=== PATIENT | female | born 1955 | race Caucasian/White ===

== ENCOUNTER → 2016-11-24 | Outpatient (CLI) | payer OTHER ==
[2016-11-24 12:35] LABS: MEAN CORPUSCULAR HEMOGLOBIN 31.6 pg (27.0-33.0); MEAN CORPUSCULAR HGB CONC 33.4 g/dl (32.0-36.5); MEAN CORPUSCULAR VOLUME 94.6 fl (80.0-96.0); RED CELL DISTRIBUTION WIDTH 12.3 % (11.5-14.5)
[2016-11-24 13:03] LABS: ALBUMIN 3.5 GM/DL (3.2-5.2); ALKALINE PHOSPHATASE 98 U/L (45-117); ALT/SGPT 21 U/L (12-78); ANION GAP 7 MEQ/L (8-16); AST/SGOT 10 U/L (15-37); BILIRUBIN,TOTAL 0.5 MG/DL (0.2-1.0); BLOOD UREA NITROGEN 11 MG/DL (7-18); CALCIUM LEVEL 8.4 MG/DL (8.8-10.2); CARBON DIOXIDE LEVEL 29 MEQ/L (21-32); CHLORIDE LEVEL 107 MEQ/L (98-107); CHOLESTEROL LEVEL 211 MG/DL (<200); CREATININE FOR GFR 0.79 MG/DL (0.55-1.02); FREE T4 1.33 NG/DL (0.76-1.46); GLOMERULAR FILTRATION RATE > 60.0 (>45); GLUCOSE, FASTING 104 MG/DL (80-110); POTASSIUM SERUM 3.9 MEQ/L (3.5-5.1); SODIUM LEVEL 143 MEQ/L (136-145); TOTAL PROTEIN 6.2 GM/DL (6.4-8.2); TRIGLYCERIDES LEVEL 159 MG/DL (<150)
== END ==
LOC: M WUC 10:55
PROVIDERS: ATTEND Internal Medicine Cardiovascular Disease
DX: Z00.00 Encounter for general adult medical examination without abnormal findings (principal)

== ENCOUNTER → 2017-09-14 | Outpatient (CLI) | payer OTHER ==
[2017-09-14 17:39] LABS: HEMATOCRIT 37.8 % (36.0-47.0); HEMOGLOBIN 12.6 g/dl (12.0-16.0); MEAN CORPUSCULAR HEMOGLOBIN 30.8 pg (27.0-33.0); MEAN CORPUSCULAR HGB CONC 33.3 g/dl (32.0-36.5); MEAN CORPUSCULAR VOLUME 92.4 fl (80.0-96.0); PLATELET COUNT, AUTOMATED 333 10^3/uL (150-450); RED BLOOD COUNT 4.09 10^6/uL (4.00-5.40)
[2017-09-14 17:45] LABS: AMORPHOUS SEDIMENT SMALL (NEGATIVE); APPEARANCE, URINE HAZY (CLEAR); BACTERIA, URINE AUTO NEGATIVE (NEGATIVE); BILIRUBIN, URINE AUTO NEGATIVE (NEGATIVE); BLOOD, URINE BLOOD NEGATIVE (NEGATIVE); COLOR, URINE YELLOW (YELLOW); GLUCOSE, URINE (UA) AUTO NEGATIVE (NEGATIVE); KETONE, URINE AUTO NEGATIVE (NEGATIVE); LEUKOCYTE ESTERASE, URINE AUTO NEGATIVE (NEGATIVE); MUCUS, URINE SMALL (NEGATIVE); NITRITE, URINE AUTO NEGATIVE (NEGATIVE); PROTEIN, URINE AUTO NEGATIVE (NEGATIVE); RBC, URINE AUTO 1 /HPF (0-3); SPECIFIC GRAVITY URINE AUTO 1.016 (1.002-1.035); SQUAMOUS EPITHELIAL CELL UR AU 0 /HPF (0-6); UROBILINOGEN, URINE AUTO 0.2 mg/dL (0.0-2.0); WBC, URINE AUTO 3 /HPF (0-3)
[2017-09-14 17:46] LABS: ESTIMATED AVERAGE GLUCOSE 120 MG/DL (60-110); HEMOGLOBIN A1c 5.8 %
[2017-09-14 17:59] LABS: ALBUMIN 3.7 GM/DL (3.2-5.2); ALBUMIN/GLOBULIN RATIO 1.37 (1.00-1.93); ALKALINE PHOSPHATASE 81 U/L (45-117); ALT/SGPT 15 U/L (12-78); ANION GAP 8 MEQ/L (8-16); AST/SGOT 12 U/L (7-37); BILIRUBIN,TOTAL 0.5 MG/DL (0.2-1.0); BLOOD UREA NITROGEN 16 MG/DL (7-18); CALCIUM LEVEL 8.3 MG/DL (8.8-10.2); CARBON DIOXIDE LEVEL 29 MEQ/L (21-32); CHLORIDE LEVEL 106 MEQ/L (98-107); CHOLESTEROL LEVEL 218 MG/DL (<200); CHOLESTEROL RISK RATIO 4.739 (<5); CREATININE FOR GFR 0.82 MG/DL (0.55-1.30); FREE T4 1.32 NG/DL (0.76-1.46); GLOMERULAR FILTRATION RATE > 60.0 (>45); GLUCOSE, FASTING 96 MG/DL (70-100); HDL CHOLESTEROL 46 MG/DL (>40); LDL CHOLESTEROL 131.4 MG/DL (<100); NON-HDL-C 172 MG/DL; SODIUM LEVEL 143 MEQ/L (136-145); THYROID STIMULATING HORMONE 0.687 uIU/ML (0.358-3.740); TOTAL PROTEIN 6.4 GM/DL (6.4-8.2); TRIGLYCERIDES LEVEL 203 MG/DL (<150)
== END ==
LOC: M WUC 09:27
DX: I10 Essential (primary) hypertension (principal); J44.9 Chronic obstructive pulmonary disease, unspecified; E78.5 Hyperlipidemia, unspecified
CPT/HCPCS: 84443

== ENCOUNTER → 2018-03-01 | Outpatient (CLI) | payer MEDICARE, OTHER ==
[2018-03-01 16:50] LABS: BASO # 0.1 10^3/uL (0.0-0.2); BASO % 0.8 % (0.0-1.0); EOS # 0.1 10^3/uL (0.0-0.50); EOS % 1.8 % (0.0-3.0); HEMATOCRIT 38.1 % (36.0-47.0); HEMOGLOBIN 12.8 g/dl (12.0-15.5); IMMATURE GRANULOCYTE % 0.5 % (0-3.0); LYMPH # 2.6 10^3/uL (1.5-4.5); LYMPH % 39.2 % (24.0-44.0); MEAN CORPUSCULAR HEMOGLOBIN 31.1 pg (27.0-33.0); MEAN CORPUSCULAR HGB CONC 33.6 g/dl (32.0-36.5); MEAN CORPUSCULAR VOLUME 92.5 fl (80.0-96.0); MONO # 0.3 10^3/uL (0.0-0.8); MONO % 5.2 % (0.0-5.0); NEUTROPHILS # 3.5 10^3/uL (1.8-7.7); NEUTROPHILS % 52.5 % (36.0-66.0); PLATELET COUNT, AUTOMATED 307 10^3/uL (150-450); RED BLOOD COUNT 4.12 10^6/uL (4.00-5.40); RED CELL DISTRIBUTION WIDTH 12.2 % (11.5-14.5); WHITE BLOOD COUNT 6.6 10^3/uL (4.0-10.0)
[2018-03-01 17:08] LABS: ESTIMATED AVERAGE GLUCOSE 111 MG/DL (60-110); HEMOGLOBIN A1c 5.5 %
[2018-03-01 17:15] LABS: ALBUMIN 3.9 GM/DL (3.2-5.2); ALBUMIN/GLOBULIN RATIO 1.39 (1.00-1.93); ALKALINE PHOSPHATASE 85 U/L (45-117); ALT/SGPT 20 U/L (12-78); ANION GAP 7 MEQ/L (8-16); AST/SGOT 10 U/L (7-37); BILIRUBIN,TOTAL 0.4 MG/DL (0.2-1.0); BLOOD UREA NITROGEN 17 MG/DL (7-18); CARBON DIOXIDE LEVEL 29 MEQ/L (21-32); CHLORIDE LEVEL 109 MEQ/L (98-107); CHOLESTEROL LEVEL 238 MG/DL (<200); CHOLESTEROL RISK RATIO 4.958 (<5); CREATININE FOR GFR 0.85 MG/DL (0.55-1.30); FREE T4 1.22 NG/DL (0.76-1.46); GLOMERULAR FILTRATION RATE > 60.0 (>45); GLUCOSE, FASTING 96 MG/DL (70-100); HDL CHOLESTEROL 48 MG/DL (>40); LDL CHOLESTEROL 144.2 MG/DL (<100); NON-HDL-C 190 MG/DL; POTASSIUM SERUM 4.6 MEQ/L (3.5-5.1); SODIUM LEVEL 145 MEQ/L (136-145); THYROID STIMULATING HORMONE 0.339 uIU/ML (0.358-3.740); TOTAL PROTEIN 6.7 GM/DL (6.4-8.2); TRIGLYCERIDES LEVEL 229 MG/DL (<150)
== END ==
LOC: M WUC 10:07
DX: Z00.00 Encounter for general adult medical examination without abnormal findings (principal); Z79.899 Other long term (current) drug therapy
CPT/HCPCS: 84443

== ENCOUNTER → 2021-01-20 | Outpatient (REF) | payer MEDICARE, OTHER | LOC: M LAB REF 19:58 | PROVIDERS: ATTEND Nurse Practitioner Family | DX: R35.0 Frequency of micturition (principal) ==

== ENCOUNTER → 2021-02-07 | Outpatient (CLI) | payer MEDICARE | LOC: M PLAIMG 13:06 | PROVIDERS: ATTEND Pain Medicine Interventional Pain Medicine | DX: M54.10 Radiculopathy, site unspecified (principal) ==

== ENCOUNTER 2021-10-17 13:34 | Emergency (ER) | payer MEDICARE ==
[~2021-10-17] VITALS: Ht 162.6 cm; Wt 89.9 kg
[2021-10-17] MEDS ORDERED: IRBE300T7 (13:52)
[2021-10-17] MEDS ORDERED: SYMB16INH (13:52)
[2021-10-17] MEDS ORDERED: DICY20TA20 (13:52)
[2021-10-17] MEDS ORDERED: FELO10TA28 (13:52)
[2021-10-17] MEDS ORDERED: CETI-24 (13:52)
[2021-10-17] MEDS ORDERED: OLOP5DRO16 (13:52)
[2021-10-17] MEDS ORDERED: POTA1TAB23 (13:52)
[2021-10-17] MEDS ORDERED: OMEP-173 (13:52)
[2021-10-17] MEDS ORDERED: FURO40TA2 (13:52)
[2021-10-17] MEDS ORDERED: LEVO137T2 (13:52)
[2021-10-17] MEDS ORDERED: MONT10TA97 (13:52)
[2021-10-17 17:31] LABS: BASO # 0.1 10^3/uL (0.0-0.2); BASO % 0.6 % (0.0-1.0); EOS # 0.1 10^3/uL (0.0-0.5); EOS % 0.8 % (0.0-3.0); HEMATOCRIT 40.5 % (36.0-47.0); HEMOGLOBIN 13.4 g/dl (12.0-15.5); LYMPH # 2.6 10^3/uL (1.5-5.0); LYMPH % 25.4 % (24.0-44.0); MEAN CORPUSCULAR HEMOGLOBIN 30.2 pg (27.0-33.0); MEAN CORPUSCULAR HGB CONC 33.1 g/dl (32.0-36.5); MEAN CORPUSCULAR VOLUME 91.2 fl (80.0-96.0); MONO # 0.7 10^3/uL (0.0-0.8); MONO % 6.3 % (2.0-8.0); NEUTROPHILS # 6.9 10^3/uL (1.5-8.5); NEUTROPHILS % 66.6 % (36.0-66.0); PLATELET COUNT, AUTOMATED 437 10^3/uL (150-450); RED BLOOD COUNT 4.44 10^6/uL (4.00-5.40); WHITE BLOOD COUNT 10.4 10^3/uL (4.0-10.0)
[2021-10-17] MEDS: METOPROLOL 5 MG/5 ML VIAL IV SCH ×3 (18:10→18:45)
[2021-10-17 18:11] LABS: BLOOD UREA NITROGEN 19 MG/DL (7-18); CALCIUM LEVEL 9.5 MG/DL (8.8-10.2); CARBON DIOXIDE LEVEL 26 MEQ/L (21-32); CHLORIDE LEVEL 112 MEQ/L (98-107); CREATININE FOR GFR 0.82 MG/DL (0.55-1.30); FREE T4 1.32 NG/DL (0.76-1.46); GLOMERULAR FILTRATION RATE > 60.0 (>45); GLUCOSE, FASTING 101 MG/DL (70-100); MAGNESIUM LEVEL 2.3 MG/DL (1.8-2.4); SODIUM LEVEL 144 MEQ/L (136-145)
[2021-10-17 18:59] LABS: CK-MB VALUE MASS 3.1 NG/ML (<3.6); MB/CK RELATIVE INDEX 6.6 (< OR =4)
[2021-10-17] MEDS ORDERED: HEPARIN SOD (PORCINE) 5000UNITS/ML 1ML VIAL/SYRINGE IV ONE (19:15)
[2021-10-17] MEDS ORDERED: HEPARIN DRIP 25,000 UNITS in IV 1 EA IV SCH (19:15)
[2021-10-17 19:25] VITALS: BP 132/79
[2021-10-17] MEDS ORDERED: METOPROLOL TART 25 MG TABLET PO ONE (19:25)
[2021-10-17 19:44] LABS: INR 0.99; PROTHROMBIN TIME 13.5 SECONDS (12.7-14.5)
[2021-10-17 19:45] LABS: PARTIAL THROMBOPLASTIN TIME 27.3 SECONDS (25.9-37.0)
[2021-10-17 19:49] LABS: MB/CK RELATIVE INDEX 4.26 (< OR =4)
[2021-10-17 20:15] LABS: RSV AMPLIFICATION NEGATIVE (NEGATIVE)
[2021-10-17 20:23] VITALS: BP 141/69
== END 2021-10-17 20:23 ==
LOC: M ED 13:34
DX: I21.4 Non-ST elevation (NSTEMI) myocardial infarction (principal); I48.91 Unspecified atrial fibrillation; J44.9 Chronic obstructive pulmonary disease, unspecified; M54.50 Low back pain, unspecified; F17.200 Nicotine dependence, unspecified, uncomplicated; Z88.8 Allergy status to other drugs, medicaments and biological substances
CPT/HCPCS: 71046; 80048; 82550; 82553; 83735; 84439; 84443; 84484; 85025; 85610; 85730; 87631; 93005; 93041; 94760; 96374; 96375; 96376; 99285; J1644

== ENCOUNTER → 2022-07-23 | Outpatient (CLI) | payer MEDICARE ==
[~2022-07-23] MED LIST: CETI-24; DICY20TA20; FELO10TA28; FURO40TA2; IRBE300T7; LEVO137T2; MONT10TA97; OLOP5DRO16; OMEP-173; POTA1TAB23; SYMB16INH
[2022-07-23 16:48] LABS: MEAN CORPUSCULAR HEMOGLOBIN 29.7 pg (27.0-33.0); MEAN CORPUSCULAR HGB CONC 31.4 g/dl (32.0-36.5); MEAN CORPUSCULAR VOLUME 94.6 fl (80.0-96.0); PLATELET COUNT, AUTOMATED 333 10^3/uL (150-450); WHITE BLOOD COUNT 8.4 10^3/uL (4.0-10.0)
[2022-07-23 17:24] LABS: ALBUMIN 3.8 G/DL (3.2-5.2); ALKALINE PHOSPHATASE 89 U/L (46-116); ALT/SGPT 14 U/L (7.0-40); AST/SGOT 10 U/L (<34); BILIRUBIN,TOTAL 0.3 MG/DL (0.3-1.2); BLOOD UREA NITROGEN 22 MG/DL (9-23); CALCIUM LEVEL 8.7 MG/DL (8.3-10.6); CARBON DIOXIDE LEVEL 27 MMOL/L (20-31); CHLORIDE LEVEL 107 MMOL/L (98-107); CHOLESTEROL LEVEL 136 MG/DL (<200); CHOLESTEROL RISK RATIO 2.64 (<5); CREATININE FOR GFR 0.84 MG/DL (0.55-1.30); GLOMERULAR FILTRATION RATE > 60.0 (>45); GLUCOSE, FASTING 98 MG/DL (74-106); HDL CHOLESTEROL 51.5 MG/DL (>40); LDL CHOLESTEROL 43.7 MG/DL (<100); NON-HDL-C 85 MG/DL; SODIUM LEVEL 144 MMOL/L (136-145); THYROID STIMULATING HORMONE 1.964 uIU/ML (0.55-4.78); TRIGLYCERIDES LEVEL 204 MG/DL (<150)
== END ==
LOC: M WUC 14:01
PROVIDERS: ATTEND Internal Medicine
DX: E78.5 Hyperlipidemia, unspecified (principal); R06.00 Dyspnea, unspecified; N03.9 Chronic nephritic syndrome with unspecified morphologic changes

== ENCOUNTER → 2022-10-10 | Outpatient (CLI) | payer MEDICARE ==
[~2022-10-10] MED LIST changes: -OLOP5DRO16; +OLOP5DRO17
[2022-10-10 17:17] LABS: HEMOGLOBIN 11.4 g/dl (12.0-15.5); MEAN CORPUSCULAR HEMOGLOBIN 29.8 pg (27.0-33.0); MEAN CORPUSCULAR HGB CONC 31.7 g/dl (32.0-36.5); MEAN CORPUSCULAR VOLUME 94.2 fl (80.0-96.0); PLATELET COUNT, AUTOMATED 285 10^3/uL (150-450); RED BLOOD COUNT 3.82 10^6/uL (4.00-5.40); WHITE BLOOD COUNT 11.9 10^3/uL (4.0-10.0)
[2022-10-10 17:19] LABS: APPEARANCE, URINE CLOUDY (CLEAR); BACTERIA, URINE AUTO 1+ (NEGATIVE); BILIRUBIN, URINE AUTO 2+ (NEGATIVE); BLOOD, URINE BLOOD NEGATIVE (NEGATIVE); COLOR, URINE AMBER (YELLOW); GLUCOSE, URINE (UA) AUTO NEGATIVE (NEGATIVE); KETONE, URINE AUTO TRACE mg/dL (NEGATIVE); LEUKOCYTE ESTERASE, URINE AUTO 3+ (NEGATIVE); MUCUS, URINE LARGE (NEGATIVE); NITRITE, URINE AUTO NEGATIVE (NEGATIVE); PROTEIN, URINE AUTO 3+ mg/dL (NEGATIVE); RBC, URINE AUTO 3 /HPF (0-3); SPECIFIC GRAVITY URINE AUTO 1.033 (1.002-1.035); SQUAMOUS EPITHELIAL CELL UR AU 11 /HPF (0-6); WBC, URINE AUTO 57 /HPF (0-3)
[2022-10-10 17:32] LABS: ALBUMIN 3.3 G/DL (3.2-5.2); ALKALINE PHOSPHATASE 74 U/L (46-116); ALT/SGPT < 9 U/L (7.0-40); AST/SGOT 10 U/L (<34); BILIRUBIN,TOTAL 0.4 MG/DL (0.3-1.2); BLOOD UREA NITROGEN 15 MG/DL (9-23); CALCIUM LEVEL 8.6 MG/DL (8.3-10.6); CARBON DIOXIDE LEVEL 29 MMOL/L (20-31); CHLORIDE LEVEL 107 MMOL/L (98-107); CREATININE FOR GFR 0.95 MG/DL (0.55-1.30); GLOMERULAR FILTRATION RATE > 60.0 (>45); GLUCOSE, FASTING 88 MG/DL (74-106); POTASSIUM SERUM 3.6 MMOL/L (3.5-5.1); SODIUM LEVEL 145 MMOL/L (136-145)
== END ==
LOC: M WUC 14:55
PROVIDERS: ATTEND Internal Medicine
DX: A09 Infectious gastroenteritis and colitis, unspecified (principal)

== ENCOUNTER 2022-10-29 10:06 | Inpatient (IN) | payer MEDICARE ==
[~2022-10-29] VITALS: Ht 162.6 cm; Wt 93.0 kg
[~2022-10-29 10:06] MED LIST changes: -CETI-24; +CETI-24 PO; -FURO40TA2; +FURO40TA2 PO; -IRBE300T7; +IRBE300T7 PO; -LEVO137T2; +LEVO137T2 PO; -MONT10TA97; +MONT10TA97 PO; -POTA1TAB23; +POTA1TAB23 PO
[2022-10-29 11:30] VITALS: BP 137/68
[2022-10-29 14:00] VITALS: BP 107/64
[2022-10-29] MEDS ORDERED: ACETAMINOPHEN TAB 650MG DOSE (2X325MG) PO PRN (16:05)
[2022-10-29] MEDS ORDERED: BISACODYL 10MG SUPP PR PRN (16:05)
[2022-10-29] MEDS ORDERED: MIRALAX *UNIT DOSE* 17GM PACKET PO PRN (16:05)
[2022-10-29 20:00] VITALS: BP 152/62
[2022-10-29] MEDS ORDERED: PANT40TA29 PO (20:20)
[2022-10-29] MEDS ORDERED: ALBU8.5H INH (20:20)
[2022-10-29] MEDS ORDERED: CLOP75TA2 PO (20:20)
[2022-10-29] MEDS ORDERED: BUDE10.7 IH (20:20)
[2022-10-29] MEDS ORDERED: METO1TAB32 PO (20:20)
[2022-10-29] MEDS ORDERED: AMIO200T49 PO (20:20)
[2022-10-29] MEDS ORDERED: ATOR80TA59 PO (20:26)
[2022-10-29] MEDS ORDERED: HOME MED LIST COMPLETE! XX SCH (20:30)
[2022-10-29] MEDS ORDERED: TORS10TA3 PO (20:34)
[2022-10-29] MEDS ORDERED: SPIR12.9 INH (20:34)
[2022-10-29] MEDS ORDERED: METO200T28 PO (20:34)
[2022-10-29] MEDS ORDERED: ELIQ5TAB PO (20:34)
[2022-10-29] MEDS ORDERED: TIOT18INH INH (20:34)
[2022-10-29] MEDS: COMBIVENT RESPIMAT 100-20MCG INHALER 4GM INH SCH (20:51)
[2022-10-29] MEDS: SYMBICORT 160/4.5MCG INHALER 6GM INH SCH (20:52)
[2022-10-29] MEDS: POTASSIUM CHLORIDE 10MEQ SR TABLET PO SCH (21:12)
[2022-10-29] MEDS: MONTELUKAST 10 MG TAB PO SCH (21:12)
[2022-10-29] MEDS: SENNA 8.6 MG TAB (SENOKOT) PO SCH (21:12)
[2022-10-29] MEDS: DOCUSATE SODIUM 100MG CAPSULE PO SCH (21:12)
[2022-10-29] MEDS: APIXABAN 5 MG TAB (ELIQUIS) PO SCH (21:12)
[2022-10-30] MEDS: LEVOTHYROXINE 137MCG TABLET (0.137MG) PO SCH (05:27)
[2022-10-30 06:00] VITALS: BP 112/68
[2022-10-30 06:26] LABS: BASO # 0.1 10^3/uL (0.0-0.2); BASO % 1.1 % (0.0-1.0); EOS # 0.2 10^3/uL (0.0-0.5); EOS % 2.8 % (0.0-3.0); HEMATOCRIT 29.3 % (36.0-47.0); LYMPH # 1.8 10^3/uL (1.5-5.0); LYMPH % 22.3 % (24.0-44.0); MEAN CORPUSCULAR HEMOGLOBIN 29.1 pg (27.0-33.0); MEAN CORPUSCULAR HGB CONC 30.7 g/dl (32.0-36.5); MEAN CORPUSCULAR VOLUME 94.8 fl (80.0-96.0); NEUTROPHILS % 60.9 % (36.0-66.0); PLATELET COUNT, AUTOMATED 481 10^3/uL (150-450); RED BLOOD COUNT 3.09 10^6/uL (4.00-5.40); WHITE BLOOD COUNT 8.2 10^3/uL (4.0-10.0)
[2022-10-30 07:01] LABS: ALKALINE PHOSPHATASE 74 U/L (46-116); ALT/SGPT 10 U/L (7.0-40); AST/SGOT 12 U/L (<34); BILIRUBIN,TOTAL 0.5 MG/DL (0.3-1.2); BLOOD UREA NITROGEN 20 MG/DL (9-23); CALCIUM LEVEL 8.8 MG/DL (8.3-10.6); CARBON DIOXIDE LEVEL 28 MMOL/L (20-31); CHLORIDE LEVEL 107 MMOL/L (98-107); CREATININE FOR GFR 0.86 MG/DL (0.55-1.30); GLOMERULAR FILTRATION RATE > 60.0 (>45); GLUCOSE, FASTING 102 MG/DL (74-106); POTASSIUM SERUM 4.3 MMOL/L (3.5-5.1); SODIUM LEVEL 142 MMOL/L (136-145); TOTAL PROTEIN 5.3 G/DL (5.7-8.2)
[2022-10-30] MEDS: SYMBICORT 160/4.5MCG INHALER 6GM INH SCH ×2 (07:13→20:00)
[2022-10-30] MEDS: TIOTROPIUM INHALER/CAPSULE (SPIRIVA) INH SCH (07:13)
[2022-10-30] MEDS: COMBIVENT RESPIMAT 100-20MCG INHALER 4GM INH SCH ×4 (07:14→20:00)
[2022-10-30 08:05] VITALS: BP 108/76
[2022-10-30] MEDS: PANTOPRAZOLE 40MG TAB (PROTONIX) PO SCH (08:08)
[2022-10-30] MEDS: POTASSIUM CHLORIDE 10MEQ SR TABLET PO SCH (08:08)
[2022-10-30] MEDS: DOCUSATE SODIUM 100MG CAPSULE PO SCH ×2 (08:08→19:40)
[2022-10-30] MEDS: ATORVASTATIN 20 MG TAB PO SCH (08:08)
[2022-10-30] MEDS: APIXABAN 5 MG TAB (ELIQUIS) PO SCH ×2 (08:08→19:40)
[2022-10-30] MEDS: METOPROLOL SUCC (TopROL XL) 100MG *XL* TAB PO SCH ×2 (08:09→11:07)
[2022-10-30] MEDS: TORSEMIDE 10 MG TABLET PO SCH (08:09)
[2022-10-30 11:01] VITALS: BP 126/91
[2022-10-30 12:30] LABS: IRON (FE) 31 UG/DL (50-170); MAGNESIUM LEVEL 1.9 MG/DL (1.8-2.4)
[2022-10-30 12:31] LABS: PERCENT SATURATION 11.4 % (13.2-45.0); TOTAL IRON BINDING CAPACITY 272 UG/DL (250-425)
[2022-10-30 12:32] LABS: FERRITIN 58.6 NG/ML (7.3-270.7)
[2022-10-30 12:33] LABS: VITAMIN B12 LEVEL 279 PG/ML (211-911)
[2022-10-30 14:00] VITALS: BP 131/56
[2022-10-30] MEDS: SENNA 8.6 MG TAB (SENOKOT) PO SCH (19:40)
[2022-10-30] MEDS: MONTELUKAST 10 MG TAB PO SCH (19:40)
[2022-10-30 20:00] VITALS: BP 117/55
[2022-10-31] MEDS: LEVOTHYROXINE 137MCG TABLET (0.137MG) PO SCH (05:19)
[2022-10-31 06:00] VITALS: BP 114/83
[2022-10-31] MEDS: APIXABAN 5 MG TAB (ELIQUIS) PO SCH ×2 (07:23→20:14)
[2022-10-31] MEDS: TORSEMIDE 10 MG TABLET PO SCH (07:23)
[2022-10-31] MEDS: PANTOPRAZOLE 40MG TAB (PROTONIX) PO SCH (07:23)
[2022-10-31] MEDS: METOPROLOL SUCC (TopROL XL) 100MG *XL* TAB PO SCH (07:24)
[2022-10-31] MEDS: POTASSIUM CHLORIDE 10MEQ SR TABLET PO SCH (07:24)
[2022-10-31] MEDS: ATORVASTATIN 20 MG TAB PO SCH (07:24)
[2022-10-31] MEDS: DOCUSATE SODIUM 100MG CAPSULE PO SCH ×2 (07:24→20:16)
[2022-10-31] MEDS: TIOTROPIUM INHALER/CAPSULE (SPIRIVA) INH SCH (07:40)
[2022-10-31] MEDS: SYMBICORT 160/4.5MCG INHALER 6GM INH SCH ×2 (07:40→20:12)
[2022-10-31] MEDS: COMBIVENT RESPIMAT 100-20MCG INHALER 4GM INH SCH (07:41)
[2022-10-31 11:00] LABS: BASO # 0.1 10^3/uL (0.0-0.2); EOS # 0.2 10^3/uL (0.0-0.5); EOS % 2.4 % (0.0-3.0); HEMATOCRIT 30.6 % (36.0-47.0); HEMOGLOBIN 9.8 g/dl (12.0-15.5); LYMPH # 1.3 10^3/uL (1.5-5.0); LYMPH % 16.6 % (24.0-44.0); MEAN CORPUSCULAR HEMOGLOBIN 30.2 pg (27.0-33.0); MEAN CORPUSCULAR VOLUME 94.4 fl (80.0-96.0); MONO # 0.7 10^3/uL (0.0-0.8); NEUTROPHILS # 5.5 10^3/uL (1.5-8.5); PLATELET COUNT, AUTOMATED 513 10^3/uL (150-450); RED BLOOD COUNT 3.24 10^6/uL (4.00-5.40); WHITE BLOOD COUNT 7.9 10^3/uL (4.0-10.0)
[2022-10-31 11:35] LABS: BLOOD UREA NITROGEN 17 MG/DL (9-23); CALCIUM LEVEL 8.5 MG/DL (8.3-10.6); CARBON DIOXIDE LEVEL 27 MMOL/L (20-31); CHLORIDE LEVEL 111 MMOL/L (98-107); CREATININE FOR GFR 0.85 MG/DL (0.55-1.30); DIGOXIN LEVEL 0.4 NG/ML (0.8-2.0); GLOMERULAR FILTRATION RATE > 60.0 (>45); GLUCOSE, FASTING 129 MG/DL (74-106); POTASSIUM SERUM 4.1 MMOL/L (3.5-5.1); SODIUM LEVEL 143 MMOL/L (136-145)
[2022-10-31 14:00] VITALS: BP 130/63
[2022-10-31] MEDS: DIGOXIN 0.125 MG TAB PO SCH (14:30)
[2022-10-31] MEDS: NICOTINE 7 MG/24 HR TRANSDERMAL TD SCH (14:31)
[2022-10-31 20:00] VITALS: BP 97/54
[2022-10-31] MEDS: MONTELUKAST 10 MG TAB PO SCH (20:14)
[2022-10-31] MEDS: SENNA 8.6 MG TAB (SENOKOT) PO SCH (20:16)
[2022-11-01] MEDS: LEVOTHYROXINE 137MCG TABLET (0.137MG) PO SCH (05:30)
[2022-11-01 06:11] VITALS: BP 139/94
[2022-11-01] MEDS: SYMBICORT 160/4.5MCG INHALER 6GM INH SCH ×2 (07:08→20:13)
[2022-11-01] MEDS: TIOTROPIUM INHALER/CAPSULE (SPIRIVA) INH SCH (07:08)
[2022-11-01] MEDS: DOCUSATE SODIUM 100MG CAPSULE PO SCH ×2 (08:08→19:18)
[2022-11-01] MEDS: POTASSIUM CHLORIDE 10MEQ SR TABLET PO SCH (08:11)
[2022-11-01] MEDS: APIXABAN 5 MG TAB (ELIQUIS) PO SCH ×2 (08:11→19:30)
[2022-11-01] MEDS: ATORVASTATIN 20 MG TAB PO SCH (08:11)
[2022-11-01] MEDS: METOPROLOL SUCC (TopROL XL) 100MG *XL* TAB PO SCH (08:12)
[2022-11-01] MEDS: DIGOXIN 0.125 MG TAB PO SCH (08:12)
[2022-11-01] MEDS: PANTOPRAZOLE 40MG TAB (PROTONIX) PO SCH (08:12)
[2022-11-01] MEDS: TORSEMIDE 10 MG TABLET PO SCH (08:13)
[2022-11-01] MEDS: NICOTINE 7 MG/24 HR TRANSDERMAL TD SCH (08:13)
[2022-11-01 14:00] VITALS: BP 109/52
[2022-11-01] MEDS: CETIRIZINE (ZyrTEC) 10 MG TAB PO SCH (17:00)
[2022-11-01] MEDS: FLUTICASONE PROP 0.05% NASAL SPRAY 16 GM (FLONASE) NARES SCH (17:00)
[2022-11-01] MEDS: SENNA 8.6 MG TAB (SENOKOT) PO SCH (19:18)
[2022-11-01] MEDS: MONTELUKAST 10 MG TAB PO SCH (19:31)
[2022-11-01 20:00] VITALS: BP 106/68
[2022-11-02] MEDS: LEVOTHYROXINE 137MCG TABLET (0.137MG) PO SCH (05:22)
[2022-11-02 06:00] VITALS: BP 127/78
[2022-11-02 06:55] LABS: BASO # 0.1 10^3/uL (0.0-0.2); EOS # 0.2 10^3/uL (0.0-0.5); EOS % 2.9 % (0.0-3.0); LYMPH # 2.1 10^3/uL (1.5-5.0); LYMPH % 26.9 % (24.0-44.0); MEAN CORPUSCULAR HEMOGLOBIN 29.6 pg (27.0-33.0); MEAN CORPUSCULAR VOLUME 95.4 fl (80.0-96.0); MONO # 0.8 10^3/uL (0.0-0.8); MONO % 9.8 % (2.0-8.0); NEUTROPHILS # 4.5 10^3/uL (1.5-8.5); NEUTROPHILS % 58.7 % (36.0-66.0); PLATELET COUNT, AUTOMATED 403 10^3/uL (150-450); RED BLOOD COUNT 3.04 10^6/uL (4.00-5.40); WHITE BLOOD COUNT 7.7 10^3/uL (4.0-10.0)
[2022-11-02] MEDS: TIOTROPIUM INHALER/CAPSULE (SPIRIVA) INH SCH (07:15)
[2022-11-02] MEDS: SYMBICORT 160/4.5MCG INHALER 6GM INH SCH ×2 (07:15→20:02)
[2022-11-02 07:33] LABS: BLOOD UREA NITROGEN 20 MG/DL (9-23); CALCIUM LEVEL 8.1 MG/DL (8.3-10.6); CARBON DIOXIDE LEVEL 29 MMOL/L (20-31); CHLORIDE LEVEL 110 MMOL/L (98-107); CREATININE FOR GFR 0.89 MG/DL (0.55-1.30); GLOMERULAR FILTRATION RATE > 60.0 (>45); GLUCOSE, FASTING 108 MG/DL (74-106); POTASSIUM SERUM 3.8 MMOL/L (3.5-5.1); SODIUM LEVEL 143 MMOL/L (136-145)
[2022-11-02] MEDS: FLUTICASONE PROP 0.05% NASAL SPRAY 16 GM (FLONASE) NARES SCH ×2 (09:00→19:54)
[2022-11-02] MEDS: PANTOPRAZOLE 40MG TAB (PROTONIX) PO SCH (09:36)
[2022-11-02] MEDS: ATORVASTATIN 20 MG TAB PO SCH (09:36)
[2022-11-02] MEDS: DOCUSATE SODIUM 100MG CAPSULE PO SCH ×2 (09:36→19:53)
[2022-11-02] MEDS: CETIRIZINE (ZyrTEC) 10 MG TAB PO SCH (09:36)
[2022-11-02] MEDS: APIXABAN 5 MG TAB (ELIQUIS) PO SCH ×2 (09:36→19:54)
[2022-11-02] MEDS: TORSEMIDE 10 MG TABLET PO SCH (09:36)
[2022-11-02] MEDS: DIGOXIN 0.125 MG TAB PO SCH (09:37)
[2022-11-02] MEDS: METOPROLOL SUCC (TopROL XL) 100MG *XL* TAB PO SCH (09:37)
[2022-11-02] MEDS: POTASSIUM CHLORIDE 10MEQ SR TABLET PO SCH (09:37)
[2022-11-02] MEDS: NICOTINE 7 MG/24 HR TRANSDERMAL TD SCH (09:38)
[2022-11-02 14:00] VITALS: BP 130/65
[2022-11-02 19:38] VITALS: BP 138/90
[2022-11-02] MEDS: SENNA 8.6 MG TAB (SENOKOT) PO SCH (19:53)
[2022-11-02] MEDS: MONTELUKAST 10 MG TAB PO SCH (19:54)
[2022-11-03 05:54] VITALS: BP 118/65
[2022-11-03] MEDS: LEVOTHYROXINE 137MCG TABLET (0.137MG) PO SCH (05:57)
[2022-11-03] MEDS: TIOTROPIUM INHALER/CAPSULE (SPIRIVA) INH SCH (07:17)
[2022-11-03] MEDS: SYMBICORT 160/4.5MCG INHALER 6GM INH SCH ×2 (07:17→20:03)
[2022-11-03] MEDS: DOCUSATE SODIUM 100MG CAPSULE PO SCH ×2 (09:00→21:00)
[2022-11-03] MEDS: NICOTINE 7 MG/24 HR TRANSDERMAL TD SCH (09:02)
[2022-11-03] MEDS: TORSEMIDE 10 MG TABLET PO SCH (09:02)
[2022-11-03] MEDS: CETIRIZINE (ZyrTEC) 10 MG TAB PO SCH (09:02)
[2022-11-03] MEDS: POTASSIUM CHLORIDE 10MEQ SR TABLET PO SCH (09:03)
[2022-11-03] MEDS: METOPROLOL SUCC (TopROL XL) 100MG *XL* TAB PO SCH (09:03)
[2022-11-03] MEDS: PANTOPRAZOLE 40MG TAB (PROTONIX) PO SCH (09:03)
[2022-11-03] MEDS: APIXABAN 5 MG TAB (ELIQUIS) PO SCH ×2 (09:03→20:43)
[2022-11-03] MEDS: DIGOXIN 0.125 MG TAB PO SCH (09:04)
[2022-11-03] MEDS: ATORVASTATIN 20 MG TAB PO SCH (09:04)
[2022-11-03] MEDS: FLUTICASONE PROP 0.05% NASAL SPRAY 16 GM (FLONASE) NARES SCH ×2 (09:06→21:00)
[2022-11-03 14:00] VITALS: BP 122/72
[2022-11-03 20:00] VITALS: BP 119/80
[2022-11-03] MEDS: MONTELUKAST 10 MG TAB PO SCH (20:43)
[2022-11-03] MEDS: SENNA 8.6 MG TAB (SENOKOT) PO SCH (21:00)
[2022-11-04] MEDS: LEVOTHYROXINE 137MCG TABLET (0.137MG) PO SCH (05:56)
[2022-11-04 06:00] VITALS: BP 150/85
[2022-11-04] MEDS: TIOTROPIUM INHALER/CAPSULE (SPIRIVA) INH SCH (07:12)
[2022-11-04] MEDS: SYMBICORT 160/4.5MCG INHALER 6GM INH SCH ×2 (07:13→19:54)
[2022-11-04] MEDS: NICOTINE 7 MG/24 HR TRANSDERMAL TD SCH (08:30)
[2022-11-04] MEDS: FLUTICASONE PROP 0.05% NASAL SPRAY 16 GM (FLONASE) NARES SCH ×2 (08:30→19:58)
[2022-11-04] MEDS: APIXABAN 5 MG TAB (ELIQUIS) PO SCH ×2 (08:31→19:58)
[2022-11-04] MEDS: POTASSIUM CHLORIDE 10MEQ SR TABLET PO SCH (08:31)
[2022-11-04] MEDS: PANTOPRAZOLE 40MG TAB (PROTONIX) PO SCH (08:31)
[2022-11-04] MEDS: CETIRIZINE (ZyrTEC) 10 MG TAB PO SCH (08:31)
[2022-11-04] MEDS: DIGOXIN 0.125 MG TAB PO SCH (08:31)
[2022-11-04] MEDS: TORSEMIDE 10 MG TABLET PO SCH (08:31)
[2022-11-04] MEDS: ATORVASTATIN 20 MG TAB PO SCH (08:31)
[2022-11-04] MEDS: METOPROLOL SUCC (TopROL XL) 100MG *XL* TAB PO SCH (08:32)
[2022-11-04] MEDS: DOCUSATE SODIUM 100MG CAPSULE PO SCH ×2 (08:32→19:28)
[2022-11-04 14:00] VITALS: BP 130/78
[2022-11-04] MEDS: SENNA 8.6 MG TAB (SENOKOT) PO SCH (19:29)
[2022-11-04] MEDS: MONTELUKAST 10 MG TAB PO SCH (19:58)
[2022-11-04 20:00] VITALS: BP 127/87
[2022-11-05] MEDS: LEVOTHYROXINE 137MCG TABLET (0.137MG) PO SCH (05:52)
[2022-11-05 06:00] VITALS: BP 150/73
[2022-11-05] MEDS: TIOTROPIUM INHALER/CAPSULE (SPIRIVA) INH SCH (06:57)
[2022-11-05] MEDS: SYMBICORT 160/4.5MCG INHALER 6GM INH SCH (06:57)
[2022-11-05] MEDS: DOCUSATE SODIUM 100MG CAPSULE PO SCH (08:18)
[2022-11-05] MEDS: ATORVASTATIN 20 MG TAB PO SCH (08:22)
[2022-11-05] MEDS: TORSEMIDE 10 MG TABLET PO SCH (08:22)
[2022-11-05 08:23] VITALS: BP 150/73
[2022-11-05] MEDS: METOPROLOL SUCC (TopROL XL) 100MG *XL* TAB PO SCH (08:23)
[2022-11-05] MEDS: APIXABAN 5 MG TAB (ELIQUIS) PO SCH (08:23)
[2022-11-05] MEDS: NICOTINE 7 MG/24 HR TRANSDERMAL TD SCH (08:23)
[2022-11-05] MEDS: DIGOXIN 0.125 MG TAB PO SCH (08:23)
[2022-11-05] MEDS: CETIRIZINE (ZyrTEC) 10 MG TAB PO SCH (08:23)
[2022-11-05] MEDS: PANTOPRAZOLE 40MG TAB (PROTONIX) PO SCH (08:23)
[2022-11-05] MEDS: POTASSIUM CHLORIDE 10MEQ SR TABLET PO SCH (08:23)
[2022-11-05] MEDS: FLUTICASONE PROP 0.05% NASAL SPRAY 16 GM (FLONASE) NARES SCH (08:24)
[2022-11-05] MEDS ORDERED: ATOR80TA59 PO (10:07)
[2022-11-05] MEDS ORDERED: PANT40TA29 PO (10:07)
[2022-11-05] MEDS ORDERED: CETI-24 PO (10:07)
[2022-11-05] MEDS ORDERED: MONT10TA97 PO (10:07)
[2022-11-05] MEDS ORDERED: TIOT18INH INH (10:07)
[2022-11-05] MEDS ORDERED: TORS10TA3 PO (10:07)
[2022-11-05] MEDS ORDERED: ELIQ5TAB PO (10:07)
[2022-11-05] MEDS ORDERED: METO200T28 PO (10:07)
[2022-11-05] MEDS ORDERED: DIGO0.123 PO (10:07)
[2022-11-05] MEDS ORDERED: BUDE10.7 IH (10:07)
[2022-11-05] MEDS ORDERED: POTA1TAB23 PO (10:07)
[2022-11-05] MEDS ORDERED: ALBU8.5H INH (10:07)
[2022-11-05] MEDS ORDERED: LEVO137T2 PO (10:07)
== END 2022-11-05 13:55 | disposition home or self-care (01) | DRG 57 ==
LOC: M PM&R 11:05
PROVIDERS: ADMIT Physical Medicine & Rehabilitation; ATTEND Physical Medicine & Rehabilitation
DX: I69.354 Hemiplegia and hemiparesis following cerebral infarction affecting left non-dominant side (principal); I50.32 Chronic diastolic (congestive) heart failure; I48.91 Unspecified atrial fibrillation; J44.9 Chronic obstructive pulmonary disease, unspecified; R26.89 Other abnormalities of gait and mobility; I25.2 Old myocardial infarction; I65.21 Occlusion and stenosis of right carotid artery; Z74.09 Other reduced mobility; Z74.1 Need for assistance with personal care; R53.1 Weakness; Z96.651 Presence of right artificial knee joint; Z90.49 Acquired absence of other specified parts of digestive tract; E89.0 Postprocedural hypothyroidism; Z87.891 Personal history of nicotine dependence; Z79.01 Long term (current) use of anticoagulants; Z90.2 Acquired absence of lung [part of]; Z79.890 Hormone replacement therapy; Z79.899 Other long term (current) drug therapy; Z88.1 Allergy status to other antibiotic agents

== ENCOUNTER → 2023-04-24 | Outpatient (CLI) | payer MEDICARE ==
[~2023-04-24] MED LIST changes: +ALBU8.5H INH; +AMIO200T49 PO; +ATOR80TA59 PO; +BUDE10.7 IH; +CLOP75TA2 PO; +DIGO0.123 PO; +ELIQ5TAB PO; +ISOVUE-300 61% 100ML VIAL As Ordered ONE; +LIDOCAINE 1% MDV 20ML VIAL As Ordered ONE; +METO1TAB32 PO; +METO200T28 PO; +PANT40TA29 PO; +SPIR12.9 INH; +TIOT18INH INH; +TORS10TA3 PO; +TRIAMCINOLONE ACETONIDE SUSP 40MG/ML 1ML VIAL As Ordered ONE
== END ==
LOC: M RAD 15:24
PROVIDERS: ATTEND Orthopaedic Surgery
DX: M16.12 Unilateral primary osteoarthritis, left hip (principal)
CPT/HCPCS: 20610; 77002; J3301; Q9967

== ENCOUNTER → 2023-10-30 | Outpatient (CLI) | payer MEDICARE ==
[~2023-10-30] MED LIST changes: +IRBE300T25 PO; -IRBE300T7 PO; -ISOVUE-300 61% 100ML VIAL As Ordered ONE; -LIDOCAINE 1% MDV 20ML VIAL As Ordered ONE; +METO200T15 PO; -METO200T28 PO; -TRIAMCINOLONE ACETONIDE SUSP 40MG/ML 1ML VIAL As Ordered ONE
== END ==
LOC: M RAD 12:28
PROVIDERS: ATTEND Internal Medicine
DX: F17.211 Nicotine dependence, cigarettes, in remission (principal)

== ENCOUNTER → 2023-11-25 | Outpatient (CLI) | payer MEDICARE ==
[2023-11-25 12:30] LABS: MEAN CORPUSCULAR HEMOGLOBIN 30.1 pg (27.0-33.0); MEAN CORPUSCULAR HGB CONC 32.4 g/dl (32.0-36.5); MEAN CORPUSCULAR VOLUME 92.7 fl (80.0-96.0); PLATELET COUNT, AUTOMATED 392 10^3/uL (150-450); RED BLOOD COUNT 3.99 10^6/uL (4.00-5.40); WHITE BLOOD COUNT 10.7 10^3/uL (4.0-10.0)
[2023-11-25 12:36] LABS: ERYTHROCYTE SEDIMENTATION RATE 15 mm/hr (0-30)
[2023-11-25 12:42] LABS: INR 1.21
[2023-11-25 13:00] LABS: ALBUMIN 3.6 G/DL (3.2-5.2); ALKALINE PHOSPHATASE 81 U/L (46-116); ALT/SGPT 14 U/L (7.0-40); AST/SGOT < 8 U/L (<34); BILIRUBIN,TOTAL 0.6 MG/DL (0.3-1.2); BLOOD UREA NITROGEN 19 MG/DL (9-23); CALCIUM LEVEL 9.1 MG/DL (8.3-10.6); CARBON DIOXIDE LEVEL 28 MMOL/L (20-31); CHLORIDE LEVEL 109 MMOL/L (98-107); CREATININE FOR GFR 0.92 MG/DL (0.55-1.30); GLOMERULAR FILTRATION RATE > 60.0 (>39); GLUCOSE, FASTING 102 MG/DL (74-106); POTASSIUM SERUM 4.3 MMOL/L (3.5-5.1); SODIUM LEVEL 143 MMOL/L (136-145); TOTAL PROTEIN 6.1 G/DL (5.7-8.2)
== END ==
LOC: M RAD 11:20
PROVIDERS: ATTEND Orthopaedic Surgery
DX: Z01.818 Encounter for other preprocedural examination (principal); M16.12 Unilateral primary osteoarthritis, left hip; Z79.01 Long term (current) use of anticoagulants

== ENCOUNTER 2024-08-12 21:14 | Inpatient (IN) | payer MEDICARE, MEDICAID ==
[~2024-08-12] VITALS: Ht 162.6 cm; Wt 76.1 kg
[2024-08-12] MEDS ORDERED: IPRATROPIUM 0.5MG/ALBUTEROL 2.5MG INH SOL UD 3ML (DUONEB) NEB ONE ×2 (21:20)
[2024-08-12] MEDS ORDERED: IPRATROPIUM 0.5MG/ALBUTEROL 2.5MG INH SOL UD 3ML (DUONEB) NEB PRN (21:20)
[2024-08-12 21:44] LABS: VENOUS BASE EXCESS -4.8 (-2.0-2.0); VENOUS HCO3 22.5 MMOL/L (23.0-27.0); VENOUS O2 SATURATION 60.7 % (60.0-80.0); VENOUS PARTIAL PRESSURE CO2 49.9 mmHg (38.0-50.0); VENOUS PARTIAL PRESSURE O2 35.9 mmHg (30.0-50.0); VENOUS PH 7.271 UNITS (7.330-7.430); VENOUS STANDARD HCO3 19.8 MMOL/L
[2024-08-12 21:47] LABS: BASO # 0.1 10^3/uL (0.0-0.2); BASO % 0.5 % (0.0-1.0); EOS # 0.1 10^3/uL (0.0-0.5); EOS % 0.3 % (0.0-3.0); HEMATOCRIT 39.7 % (36.0-47.0); HEMOGLOBIN 12.8 g/dl (12.0-15.5); LYMPH % 13.4 % (24.0-44.0); MEAN CORPUSCULAR HEMOGLOBIN 30.1 pg (27.0-33.0); MEAN CORPUSCULAR HGB CONC 32.2 g/dl (32.0-36.5); MEAN CORPUSCULAR VOLUME 93.4 fl (80.0-96.0); MONO % 6.7 % (2.0-8.0); NEUTROPHILS # 11.8 10^3/uL (1.5-8.5); NEUTROPHILS % 78.6 % (36.0-66.0); PLATELET COUNT, AUTOMATED 278 10^3/uL (150-450); RED BLOOD COUNT 4.25 10^6/uL (4.00-5.40)
[2024-08-12] MEDS: LEVALBUTEROL 1.25MG 0.5ML CONCENTRATE NEB NEB ONE ×2 (21:56)
[2024-08-12 22:10] LABS: CK-MB VALUE MASS < 1.0 NG/ML (<3.6)
[2024-08-12 22:12] LABS: ALBUMIN 3.5 G/DL (3.2-5.2); ALKALINE PHOSPHATASE 112 U/L (35-104); ALT/SGPT 30 U/L (7.0-40); AST/SGOT 22 U/L (<34); BILIRUBIN,DIRECT 0.3 MG/DL (<0.4); BILIRUBIN,TOTAL 0.8 MG/DL (0.3-1.2); BLOOD UREA NITROGEN 20 MG/DL (9-23); CALCIUM LEVEL 8.7 MG/DL (8.3-10.6); CARBON DIOXIDE LEVEL 26 MMOL/L (20-31); CHLORIDE LEVEL 112 MMOL/L (98-107); CPK CREATINE PHOSPHOKINASE 37 U/L (34-145); CREATININE FOR GFR 0.96 MG/DL (0.55-1.30); GLOMERULAR FILTRATION RATE > 60.0 (>39); GLUCOSE, FASTING 180 MG/DL (74-106); POTASSIUM SERUM 4.3 MMOL/L (3.5-5.1); SODIUM LEVEL 148 MMOL/L (136-145); TOTAL PROTEIN 6.4 G/DL (5.7-8.2)
[2024-08-12 22:14] LABS: THYROXINE (T4) 12.2 UG/DL (4.5-10.9)
[2024-08-12] MEDS: METOPROLOL 5 MG/5 ML VIAL IV SCH (23:01)
[2024-08-12 23:57] LABS: BLOOD UREA NITROGEN 19 MG/DL (9-23); CALCIUM LEVEL 8.5 MG/DL (8.3-10.6); CARBON DIOXIDE LEVEL 23 MMOL/L (20-31); CHLORIDE LEVEL 114 MMOL/L (98-107); CK-MB VALUE MASS < 1.0 NG/ML (<3.6); CPK CREATINE PHOSPHOKINASE 49 U/L (34-145); CREATININE FOR GFR 0.84 MG/DL (0.55-1.30); GLOMERULAR FILTRATION RATE > 60.0 (>39); GLUCOSE, FASTING 130 MG/DL (74-106); MB/CK RELATIVE INDEX 2.04 (< OR =4); SODIUM LEVEL 147 MMOL/L (136-145)
[2024-08-13] VITALS (8 sets, daily range): BP systolic 131–162; BP diastolic 65–87; TEMP 97.4–99; O2SAT 91–97
[2024-08-13] MEDS: METOPROLOL TART 50 MG TAB PO ONE (00:18)
[2024-08-13] MEDS: FUROSEMIDE 100MG/10ML VIAL IV ONE (00:19)
[2024-08-13] MEDS ORDERED: ACETAMINOPHEN 325 MG TAB PO PRN (00:35)
[2024-08-13] MEDS ORDERED: MOM 30ML SUSPENSION UDC PO PRN (00:35)
[2024-08-13] MEDS: LEVALBUTEROL 1.25MG 0.5ML CONCENTRATE NEB INH SCH (01:36)
[2024-08-13] MEDS: methylPREDNISolone 125MG 2ML VIAL IV SCH (01:36)
[2024-08-13 06:53] LABS: HEMATOCRIT 38.2 % (36.0-47.0); HEMOGLOBIN 12.3 g/dl (12.0-15.5); MEAN CORPUSCULAR HEMOGLOBIN 29.7 pg (27.0-33.0); MEAN CORPUSCULAR HGB CONC 32.2 g/dl (32.0-36.5); MEAN CORPUSCULAR VOLUME 92.3 fl (80.0-96.0); PLATELET COUNT, AUTOMATED 228 10^3/uL (150-450); RED BLOOD COUNT 4.14 10^6/uL (4.00-5.40); WHITE BLOOD COUNT 5.2 10^3/uL (4.0-10.0)
[2024-08-13 07:25] LABS: ALBUMIN 3.4 G/DL (3.2-5.2); ALKALINE PHOSPHATASE 97 U/L (35-104); ALT/SGPT 25 U/L (7.0-40); AST/SGOT 16 U/L (<34); BILIRUBIN,TOTAL 0.9 MG/DL (0.3-1.2); BLOOD UREA NITROGEN 17 MG/DL (9-23); CALCIUM LEVEL 8.6 MG/DL (8.3-10.6); CARBON DIOXIDE LEVEL 25 MMOL/L (20-31); CHLORIDE LEVEL 108 MMOL/L (98-107); CREATININE FOR GFR 0.83 MG/DL (0.55-1.30); GLOMERULAR FILTRATION RATE > 60.0 (>39); GLUCOSE, FASTING 163 MG/DL (74-106); POTASSIUM SERUM 3.9 MMOL/L (3.5-5.1); SODIUM LEVEL 147 MMOL/L (136-145); TOTAL PROTEIN 6.1 G/DL (5.7-8.2)
[2024-08-13] MEDS ORDERED: VENTAER INH (07:44)
[2024-08-13] MEDS ORDERED: CETI-24 PO (07:44)
[2024-08-13] MEDS ORDERED: AZEL1SPR3 NARES (07:44)
[2024-08-13] MEDS ORDERED: ATOR80TA59 PO (07:44)
[2024-08-13] MEDS ORDERED: BUDE10.7 INH (07:44)
[2024-08-13] MEDS ORDERED: POTA10TA67 PO (07:44)
[2024-08-13] MEDS ORDERED: SYNT125T PO (07:44)
[2024-08-13] MEDS ORDERED: DIGO0.123 PO (07:44)
[2024-08-13] MEDS ORDERED: PANT-23 PO (07:44)
[2024-08-13] MEDS ORDERED: HOME MED LIST COMPLETE! XX SCH (07:45)
[2024-08-13 08:25] LABS: CK-MB VALUE MASS < 1.0 NG/ML (<3.6)
[2024-08-13 08:39] LABS: CPK CREATINE PHOSPHOKINASE 38 U/L (34-145); MB/CK RELATIVE INDEX 2.63 (< OR =4)
[2024-08-13] MEDS: DIGOXIN INJ 0.5 MG/2 ML AMP IV ONE ×3 (08:43→22:43)
[2024-08-13] MEDS: METOPROLOL TART 25 MG TABLET PO SCH (08:44)
[2024-08-13] MEDS: APIXABAN 5 MG TAB (ELIQUIS) PO SCH (08:44)
[2024-08-13] MEDS: FUROSEMIDE injection 100 MG, VIAL 2 BAG 13MM ADAPTER 1 EACH in NS 100 ML IV SCH (08:44)
[2024-08-13] MEDS: PANTOPRAZOLE 40MG TAB (PROTONIX) PO SCH (08:45)
[2024-08-13] MEDS ORDERED: FUROSEMIDE 40MG/4ML VIAL IV SCH (09:00)
[2024-08-13 14:53] LABS: CALCIUM LEVEL 8.5 MG/DL (8.3-10.6); CREATININE FOR GFR 0.98 MG/DL (0.55-1.30); GLOMERULAR FILTRATION RATE 59.6 (>39); MAGNESIUM LEVEL 1.8 MG/DL (1.8-2.4)
[2024-08-13] MEDS: TIOTROPIUM INHALER/CAPSULE (SPIRIVA) INH SCH (18:00)
[2024-08-13] MEDS: methylPREDNISolone 40MG 1ML VIAL IV SCH (22:42)
[2024-08-13] MEDS: CETIRIZINE (ZyrTEC) 10 MG TAB PO SCH (22:44)
[2024-08-13] MEDS: ATORVASTATIN 20 MG TAB PO SCH (22:44)
[2024-08-13] MEDS: LEVOTHYROXINE 125MCG TABLET (0.125MG) PO SCH (22:44)
[2024-08-14] MEDS: AMIODARONE 100MG TABLET (PACERONE) PO SCH (00:01)
[2024-08-14 04:30] VITALS: BP 161/86; TEMP 98.3; O2SAT 90
[2024-08-14 06:01] LABS: BASO % 0.1 % (0.0-1.0); HEMATOCRIT 35.8 % (36.0-47.0); HEMOGLOBIN 11.4 g/dl (12.0-15.5); MEAN CORPUSCULAR HEMOGLOBIN 29.3 pg (27.0-33.0); MEAN CORPUSCULAR HGB CONC 31.8 g/dl (32.0-36.5); MONO # 0.3 10^3/uL (0.0-0.8); MONO % 2.9 % (2.0-8.0); NEUTROPHILS # 9.2 10^3/uL (1.5-8.5); NEUTROPHILS % 87.3 % (36.0-66.0); PLATELET COUNT, AUTOMATED 291 10^3/uL (150-450); RED BLOOD COUNT 3.89 10^6/uL (4.00-5.40); WHITE BLOOD COUNT 10.5 10^3/uL (4.0-10.0)
[2024-08-14 06:14] LABS: CHOLESTEROL RISK RATIO 2.38 (<5); DIGOXIN LEVEL 1.4 NG/ML (0.8-2.0); HDL CHOLESTEROL 56.1 MG/DL (>40); LDL CHOLESTEROL 65.1 MG/DL (<100); NON-HDL-C 77.9 MG/DL
[2024-08-14 06:15] LABS: BLOOD UREA NITROGEN 27 MG/DL (9-23); CALCIUM LEVEL 8.5 MG/DL (8.3-10.6); CARBON DIOXIDE LEVEL 29 MMOL/L (20-31); CHLORIDE LEVEL 107 MMOL/L (98-107); CREATININE FOR GFR 0.95 MG/DL (0.55-1.30); GLOMERULAR FILTRATION RATE > 60.0 (>39); GLUCOSE, FASTING 165 MG/DL (74-106); POTASSIUM SERUM 4.2 MMOL/L (3.5-5.1); SODIUM LEVEL 146 MMOL/L (136-145)
[2024-08-14 07:39] VITALS: BP 154/73; TEMP 98.1; O2SAT 96
[2024-08-14 07:56] LABS: HEMOGLOBIN A1c 5.8 % (4.0-6.0)
[2024-08-14] MEDS: predniSONE 20 MG TAB PO SCH (08:48)
[2024-08-14 08:50] VITALS: BP 154/73
[2024-08-14] MEDS: METOPROLOL TART 25 MG TABLET PO ONE (08:50)
[2024-08-14 12:14] VITALS: BP 151/78; TEMP 98.6; O2SAT 100
[2024-08-14] MEDS ORDERED: TORS20TA2 PO (12:23)
[2024-08-14] MEDS ORDERED: PRED10TA2 PO (12:23)
[2024-08-14] MEDS ORDERED: METO1TAB33 PO (12:23)
[2024-08-14] MEDS ORDERED: METO25TA PO (12:25)
[2024-08-14] MEDS ORDERED: FARX1TAB3 PO (12:27)
[2024-08-14] MEDS ORDERED: METOPROLOL TART 50 MG TAB PO SCH ×2 (21:00)
== END 2024-08-14 14:25 | disposition home health service (06) | DRG 308 ==
LOC: M ED 21:14 → M ED INP 08-13 00:32 → M PCU 08-13 10:00
PROVIDERS: ADMIT Student in an Organized Health Care Education/Training Program; ATTEND Student in an Organized Health Care Education/Training Program
DX: I48.91 Unspecified atrial fibrillation (principal); I50.33 Acute on chronic diastolic (congestive) heart failure; J96.01 Acute respiratory failure with hypoxia; J44.1 Chronic obstructive pulmonary disease with (acute) exacerbation; E87.0 Hyperosmolality and hypernatremia; I11.0 Hypertensive heart disease with heart failure; E03.9 Hypothyroidism, unspecified; Z91.148 Patient's other noncompliance with medication regimen for other reason; D72.829 Elevated white blood cell count, unspecified; Z86.73 Personal history of transient ischemic attack (TIA), and cerebral infarction without residual deficits; I25.2 Old myocardial infarction; Z88.8 Allergy status to other drugs, medicaments and biological substances; Z79.899 Other long term (current) drug therapy; R73.9 Hyperglycemia, unspecified; Z96.641 Presence of right artificial hip joint; F17.200 Nicotine dependence, unspecified, uncomplicated

== ENCOUNTER 2024-09-03 13:04 | Inpatient (IN) | payer MEDICARE, MEDICAID ==
[~2024-09-03] VITALS: Ht 162.6 cm; Wt 84.7 kg
[~2024-09-03 13:04] MED LIST changes: +AZEL1SPR3 NARES; +BUDE10.7 INH; +FARX1TAB3 PO; +METO1TAB33 PO; +METO25TA PO; +PANT-23 PO; +POTA10TA67 PO; +PRED10TA2 PO; +SYNT125T PO; +TORS20TA2 PO; +VENTAER INH
[2024-09-03] MEDS: METOPROLOL 5 MG/5 ML VIAL IV SCH (13:42)
[2024-09-03 14:00] LABS: BASO # 0.1 10^3/uL (0.0-0.2); BASO % 0.6 % (0.0-1.0); EOS # 0.1 10^3/uL (0.0-0.5); EOS % 0.7 % (0.0-3.0); HEMATOCRIT 38.2 % (36.0-47.0); HEMOGLOBIN 12.1 g/dl (12.0-15.5); LYMPH # 1.9 10^3/uL (1.5-5.0); LYMPH % 15.9 % (24.0-44.0); MEAN CORPUSCULAR HEMOGLOBIN 30.1 pg (27.0-33.0); MEAN CORPUSCULAR HGB CONC 31.7 g/dl (32.0-36.5); MONO # 0.8 10^3/uL (0.0-0.8); MONO % 6.5 % (2.0-8.0); NEUTROPHILS # 8.8 10^3/uL (1.5-8.5); NEUTROPHILS % 75.5 % (36.0-66.0); PLATELET COUNT, AUTOMATED 329 10^3/uL (150-450); RED BLOOD COUNT 4.02 10^6/uL (4.00-5.40); WHITE BLOOD COUNT 11.6 10^3/uL (4.0-10.0)
[2024-09-03 14:12] LABS: CK-MB VALUE MASS < 1.0 NG/ML (<3.6); LIPASE 35 U/L (12-53)
[2024-09-03 14:13] LABS: INR 0.95; PARTIAL THROMBOPLASTIN TIME 28.2 SECONDS (24.8-34.2)
[2024-09-03 14:14] LABS: CPK CREATINE PHOSPHOKINASE 35 U/L (34-145); MB/CK RELATIVE INDEX 2.85 (< OR =4)
[2024-09-03 14:15] LABS: ALBUMIN 3.4 G/DL (3.2-5.2); ALKALINE PHOSPHATASE 99 U/L (35-104); ALT/SGPT 41 U/L (7.0-40); AST/SGOT 29 U/L (<34); BILIRUBIN,DIRECT 0.3 MG/DL (<0.4); BILIRUBIN,TOTAL 0.8 MG/DL (0.3-1.2); BLOOD UREA NITROGEN 20 MG/DL (9-23); CALCIUM LEVEL 8.7 MG/DL (8.3-10.6); CARBON DIOXIDE LEVEL 26 MMOL/L (20-31); CHLORIDE LEVEL 111 MMOL/L (98-107); CREATININE FOR GFR 1.31 MG/DL (0.55-1.30); GLOMERULAR FILTRATION RATE 42.6 (>39); GLUCOSE, FASTING 128 MG/DL (74-106); POTASSIUM SERUM 4.5 MMOL/L (3.5-5.1); SODIUM LEVEL 145 MMOL/L (136-145)
[2024-09-03 14:16] LABS: FREE T4 1.99 NG/DL (0.89-1.76)
[2024-09-03 14:17] LABS: THYROID STIMULATING HORMONE 4.276 uIU/ML (0.55-4.78)
[2024-09-03] MEDS ORDERED: ISOVUE-370 76% 100ML VIAL As Ordered ONE (14:30)
[2024-09-03] MEDS: FUROSEMIDE 40MG/4ML VIAL IV ONE (14:40)
[2024-09-03 15:03] LABS: CK-MB VALUE MASS < 1.0 NG/ML (<3.6); CPK CREATINE PHOSPHOKINASE 37 U/L (34-145)
[2024-09-03] MEDS: METOPROLOL TART 25 MG TABLET PO ONE (15:40)
[2024-09-03 16:45] LABS: CK-MB VALUE MASS < 1.0 NG/ML (<3.6)
[2024-09-03 16:47] LABS: CPK CREATINE PHOSPHOKINASE 38 U/L (34-145); MB/CK RELATIVE INDEX 2.63 (< OR =4)
[2024-09-03] MEDS: METOPROLOL TART 25 MG TABLET PO SCH (18:00)
[2024-09-03] MEDS ORDERED: ACETAMINOPHEN 325 MG TAB PO PRN (18:15)
[2024-09-03] MEDS ORDERED: TORS20TA2 PO (18:24)
[2024-09-03] MEDS ORDERED: METO1TAB33 PO (18:28)
[2024-09-03] MEDS ORDERED: POTA-151 PO (18:28)
[2024-09-03] MEDS ORDERED: LORA-930 PO (18:29)
[2024-09-03] MEDS ORDERED: HOME MED LIST COMPLETE! XX SCH (18:30)
[2024-09-03] MEDS: AMIODARONE HCL 150 MG in IV 1 EA IV ONE (18:37)
[2024-09-03] MEDS: SYMBICORT 160/4.5MCG INHALER 6GM INH SCH (20:48)
[2024-09-03] MEDS: LEVALBUTEROL 1.25MG 0.5ML CONCENTRATE NEB INH SCH (20:48)
[2024-09-03] MEDS: ATORVASTATIN 20 MG TAB PO SCH (21:38)
[2024-09-03] MEDS: AMIODARONE 200 MG TAB (PACERONE) PO SCH (21:39)
[2024-09-03] MEDS: APIXABAN 5 MG TAB (ELIQUIS) PO SCH (21:39)
[2024-09-03] MEDS: LORATADINE 10 MG TAB PO SCH (21:39)
[2024-09-03] MEDS: CETIRIZINE (ZyrTEC) 10 MG TAB PO SCH (21:39)
[2024-09-04] VITALS (12 sets, daily range): BP systolic 82–116; BP diastolic 52–68; TEMP 97–98.7; O2SAT 81–94
[2024-09-04] MEDS: LEVALBUTEROL 1.25MG 0.5ML CONCENTRATE NEB NEB ONE (00:14)
[2024-09-04] MEDS: LEVOTHYROXINE 100MCG TABLET (0.1MG) PO SCH (06:46)
[2024-09-04] MEDS: METOPROLOL TART 25 MG TABLET PO ONE (08:10)
[2024-09-04 08:12] LABS: BASO # 0.1 10^3/uL (0.0-0.2); BASO % 0.5 % (0.0-1.0); EOS % 0.1 % (0.0-3.0); HEMATOCRIT 39.5 % (36.0-47.0); HEMOGLOBIN 12.5 g/dl (12.0-15.5); LYMPH % 13.6 % (24.0-44.0); MEAN CORPUSCULAR HEMOGLOBIN 29.6 pg (27.0-33.0); MEAN CORPUSCULAR HGB CONC 31.6 g/dl (32.0-36.5); MEAN CORPUSCULAR VOLUME 93.6 fl (80.0-96.0); NEUTROPHILS # 11.2 10^3/uL (1.5-8.5); NEUTROPHILS % 78.1 % (36.0-66.0); PLATELET COUNT, AUTOMATED 385 10^3/uL (150-450); RED BLOOD COUNT 4.22 10^6/uL (4.00-5.40); WHITE BLOOD COUNT 14.4 10^3/uL (4.0-10.0)
[2024-09-04] MEDS: TIOTROPIUM INHALER/CAPSULE (SPIRIVA) INH SCH (08:15)
[2024-09-04 08:43] LABS: CALCIUM LEVEL 8.8 MG/DL (8.3-10.6); CREATININE FOR GFR 1.56 MG/DL (0.55-1.30); GLOMERULAR FILTRATION RATE 34.8 (>39); POTASSIUM SERUM 4.6 MMOL/L (3.5-5.1)
[2024-09-04] MEDS ORDERED: TORSEMIDE 20 MG TAB PO SCH (09:00)
[2024-09-04] MEDS: DOXYCYCLINE HYCLATE 100MG TABLET PO SCH (09:00)
[2024-09-04 09:11] LABS: ABG BASE EXCESS -5.3 (-2.0-2.0); ABG HCO3 18.3 MMOL/L (22.0-26.0); ABG O2 SATURATION 88.9 % (95.0-99.0); ABG PARTIAL PRESSURE CO2 29.8 mmHg (35.0-45.0); ABG PARTIAL PRESSURE O2 61.4 mmHg (75.0-100.0); ABG TOTAL CO2 19.2 MMOL/L (23.0-31.0); ABG pH (ARTERIAL) 7.405 UNITS (7.350-7.450)
[2024-09-04 09:17] LABS: PROCALCITONIN 0.37 ng/ml
[2024-09-04] MEDS ORDERED: PIPERACILLIN/TAZOBACTAM SOD 2.25 GM in DEXTROSE 5% (D5W) ADV/MINI-BAG 50 ML IV SCH (10:20)
[2024-09-04] MEDS: PANTOPRAZOLE 40MG TAB (PROTONIX) PO SCH (10:32)
[2024-09-04] MEDS: DAPAGLIFLOZIN PROPANEDIOL 10MG TABLET (FARXIGA) PO SCH (10:32)
[2024-09-04] MEDS: PIPERACILLIN/TAZOBACTAM SOD 3.375 GM in DEXTROSE 5% (D5W) ADV/MINI-BAG 50 ML IV SCH (11:00)
[2024-09-04] MEDS: METOPROLOL TART 25 MG TABLET PO SCH ×2 (12:00→17:30)
[2024-09-04] MEDS: FUROSEMIDE injection 100 MG, VIAL 2 BAG 13MM ADAPTER 1 EACH in NS 100 ML IV SCH (14:12)
[2024-09-04] MEDS: LEVALBUTEROL 1.25MG 0.5ML CONCENTRATE NEB INH PRN (14:12)
[2024-09-04] MEDS: DIGOXIN INJ 0.5 MG/2 ML AMP IV STA (16:30)
[2024-09-04] MEDS: DIGOXIN 0.25 MG TAB PO SCH (23:37)
[2024-09-05] VITALS (34 sets, daily range): BP systolic 98–146; BP diastolic 55–88; TEMP 97.8–99.5; O2SAT 85–98
[2024-09-05 07:15] LABS: BASO # 0.1 10^3/uL (0.0-0.2); BASO % 0.6 % (0.0-1.0); EOS # 0.1 10^3/uL (0.0-0.5); EOS % 1.2 % (0.0-3.0); HEMATOCRIT 33.6 % (36.0-47.0); HEMOGLOBIN 10.6 g/dl (12.0-15.5); LYMPH # 1.8 10^3/uL (1.5-5.0); LYMPH % 21.2 % (24.0-44.0); MEAN CORPUSCULAR HEMOGLOBIN 29.4 pg (27.0-33.0); MEAN CORPUSCULAR HGB CONC 31.5 g/dl (32.0-36.5); MEAN CORPUSCULAR VOLUME 93.1 fl (80.0-96.0); MONO # 0.7 10^3/uL (0.0-0.8); MONO % 8.5 % (2.0-8.0); NEUTROPHILS # 5.9 10^3/uL (1.5-8.5); NEUTROPHILS % 67.9 % (36.0-66.0); PLATELET COUNT, AUTOMATED 295 10^3/uL (150-450); RED BLOOD COUNT 3.61 10^6/uL (4.00-5.40); WHITE BLOOD COUNT 8.7 10^3/uL (4.0-10.0)
[2024-09-05 07:56] LABS: CALCIUM LEVEL 7.5 MG/DL (8.3-10.6); CREATININE FOR GFR 1.41 MG/DL (0.55-1.30); GLOMERULAR FILTRATION RATE 39.1 (>39); POTASSIUM SERUM 3.4 MMOL/L (3.5-5.1)
[2024-09-05] MEDS: POTASSIUM CHLORIDE 10MEQ SR TABLET PO SCH (11:15)
[2024-09-05] MEDS: predniSONE 20 MG TAB PO SCH (11:16)
[2024-09-05] MEDS: TORSEMIDE 20 MG TAB PO SCH (17:11)
[2024-09-06] VITALS (33 sets, daily range): BP systolic 126–145; BP diastolic 61–93; TEMP 97.9–98.9; O2SAT 90–97
[2024-09-06 06:24] LABS: BASO % 0.4 % (0.0-1.0); EOS % 0.1 % (0.0-3.0); HEMATOCRIT 33.9 % (36.0-47.0); HEMOGLOBIN 10.6 g/dl (12.0-15.5); LYMPH # 1.2 10^3/uL (1.5-5.0); LYMPH % 12.2 % (24.0-44.0); MEAN CORPUSCULAR HEMOGLOBIN 29.6 pg (27.0-33.0); MEAN CORPUSCULAR HGB CONC 31.3 g/dl (32.0-36.5); MEAN CORPUSCULAR VOLUME 94.7 fl (80.0-96.0); MONO # 0.9 10^3/uL (0.0-0.8); NEUTROPHILS # 7.8 10^3/uL (1.5-8.5); NEUTROPHILS % 77.8 % (36.0-66.0); PLATELET COUNT, AUTOMATED 331 10^3/uL (150-450); RED BLOOD COUNT 3.58 10^6/uL (4.00-5.40)
[2024-09-06 07:25] LABS: CALCIUM LEVEL 8.2 MG/DL (8.3-10.6); CREATININE FOR GFR 1.24 MG/DL (0.55-1.30); GLOMERULAR FILTRATION RATE 45.4 (>39); POTASSIUM SERUM 4.4 MMOL/L (3.5-5.1)
[2024-09-06] MEDS: DIGOXIN 0.0625MG PER 1/2TABLET PO SCH (08:53)
[2024-09-06 17:11] LABS: MAGNESIUM LEVEL 1.9 MG/DL (1.8-2.4)
[2024-09-06] MEDS ORDERED: MIDODRINE 5 MG TAB PO PRN (18:15)
[2024-09-06] MEDS: METOPROLOL TART 50 MG TAB PO SCH (18:45)
[2024-09-06] MEDS ORDERED: METOPROLOL TART 50 MG TAB PO SCH (21:00)
[2024-09-07] VITALS (15 sets, daily range): BP systolic 134–145; BP diastolic 78–92; TEMP 97.2–97.6; O2SAT 91–96
[2024-09-07 07:01] LABS: CALCIUM LEVEL 8.4 MG/DL (8.3-10.6); CREATININE FOR GFR 1.19 MG/DL (0.55-1.30); GLOMERULAR FILTRATION RATE 47.6 (>39); POTASSIUM SERUM 3.9 MMOL/L (3.5-5.1)
[2024-09-07] MEDS: DIGOXIN 0.125 MG TAB PO SCH (08:09)
[2024-09-07] MEDS ORDERED: PRED10TA2 PO (11:25)
[2024-09-07] MEDS ORDERED: POTA-151 PO (11:25)
[2024-09-07] MEDS ORDERED: LEVO1TAB40 PO (11:25)
[2024-09-07] MEDS ORDERED: TORS20TA2 PO (11:25)
[2024-09-07] MEDS ORDERED: DIGO0.123 PO (11:25)
[2024-09-07] MEDS ORDERED: METO100T5 PO (11:25)
[2024-09-07] MEDS ORDERED: LEVO100T5 PO (11:26)
== END 2024-09-07 13:40 | disposition home health service (06) | DRG 308 ==
LOC: EDBD 13:04 → EDUNIT# 13:04 → M ED 13:04 → M ED INP 17:45 → M PCU 09-04 16:36
PROVIDERS: ADMIT Internal Medicine; ATTEND Internal Medicine
DX: I48.11 Longstanding persistent atrial fibrillation (principal); J96.01 Acute respiratory failure with hypoxia; J18.9 Pneumonia, unspecified organism; N17.9 Acute kidney failure, unspecified; I50.22 Chronic systolic (congestive) heart failure; E87.0 Hyperosmolality and hypernatremia; I42.8 Other cardiomyopathies; I11.0 Hypertensive heart disease with heart failure; E89.0 Postprocedural hypothyroidism; J44.9 Chronic obstructive pulmonary disease, unspecified; I25.10 Atherosclerotic heart disease of native coronary artery without angina pectoris; K21.9 Gastro-esophageal reflux disease without esophagitis; I44.7 Left bundle-branch block, unspecified; E87.6 Hypokalemia; I25.2 Old myocardial infarction; Z86.73 Personal history of transient ischemic attack (TIA), and cerebral infarction without residual deficits; E78.5 Hyperlipidemia, unspecified; Z96.643 Presence of artificial hip joint, bilateral; M19.90 Unspecified osteoarthritis, unspecified site; G62.9 Polyneuropathy, unspecified; Z66 Do not resuscitate

== ENCOUNTER 2024-11-03 17:27 | Observation (INO) | payer MEDICARE, MEDICAID ==
[~2024-11-03] VITALS: Ht 162.6 cm; Wt 78.6 kg
[~2024-11-03 17:27] MED LIST changes: +LEVO100T5 PO; +LEVO1TAB40 PO; +LORA-930 PO; +METO100T5 PO; +POTA-151 PO
[2024-11-03] MEDS: ACETAMINOPHEN 325 MG TAB PO ONE (18:13)
[2024-11-03] MEDS: methylPREDNISolone 125MG 2ML VIAL IV ONE (18:13)
[2024-11-03] MEDS: NS 500 ML IV ONE (18:14)
[2024-11-03 18:29] LABS: BASO # 0.1 10^3/uL (0.0-0.2); BASO % 0.5 % (0.0-1.0); EOS % 0.2 % (0.0-3.0); LYMPH # 1.4 10^3/uL (1.5-5.0); LYMPH % 13.4 % (24.0-44.0); MEAN CORPUSCULAR HEMOGLOBIN 29.4 pg (27.0-33.0); MEAN CORPUSCULAR HGB CONC 31.7 g/dl (32.0-36.5); MEAN CORPUSCULAR VOLUME 92.8 fl (80.0-96.0); MONO # 0.9 10^3/uL (0.0-0.8); MONO % 8.3 % (2.0-8.0); NEUTROPHILS # 8.3 10^3/uL (1.5-8.5); NEUTROPHILS % 77.2 % (36.0-66.0); PLATELET COUNT, AUTOMATED 288 10^3/uL (150-450); RED BLOOD COUNT 4.42 10^6/uL (4.00-5.40); WHITE BLOOD COUNT 10.8 10^3/uL (4.0-10.0)
[2024-11-03 18:42] LABS: DIGOXIN LEVEL 0.9 NG/ML (0.8-2.0)
[2024-11-03 18:43] LABS: ALBUMIN 3.8 G/DL (3.2-5.2); BILIRUBIN,DIRECT 0.2 MG/DL (<0.4); BILIRUBIN,TOTAL 0.6 MG/DL (0.3-1.2); CALCIUM LEVEL 8.6 MG/DL (8.3-10.6); CREATININE FOR GFR 1.13 MG/DL (0.55-1.30); POTASSIUM SERUM 3.6 MMOL/L (3.5-5.1); TOTAL PROTEIN 6.5 G/DL (5.7-8.2)
[2024-11-03 18:45] LABS: THYROID STIMULATING HORMONE 7.952 uIU/ML (0.55-4.78); THYROXINE (T4) 10.4 UG/DL (4.5-10.9)
[2024-11-03] MEDS: IPRATROPIUM 0.5MG/ALBUTEROL 2.5MG INH SOL UD 3ML NEB PRN (18:47)
[2024-11-03 18:54] LABS: PROCALCITONIN 0.13 ng/ml
[2024-11-03] MEDS: METOPROLOL TARTRATE 100MG TAB PO ONE (19:21)
[2024-11-03] MEDS: METOPROLOL 5 MG/5 ML VIAL IV SCH (19:21)
[2024-11-03] MEDS: AZELASTINE 137MCG NASAL SPY 30 ML (ASTELIN) SCH (21:00)
[2024-11-03] MEDS ORDERED: LEVO100T5 PO (21:21)
[2024-11-03] MEDS ORDERED: TORS20TA2 PO (21:21)
[2024-11-03] MEDS ORDERED: METO100T5 PO (21:21)
[2024-11-03] MEDS ORDERED: POTA-298 PO (21:21)
[2024-11-03] MEDS ORDERED: FARX1TAB3 PO (21:21)
[2024-11-03] MEDS ORDERED: HOME MED LIST COMPLETE! XX SCH (21:25)
[2024-11-03] MEDS: APIXABAN 5 MG TAB (ELIQUIS) PO SCH (23:32)
[2024-11-03] MEDS: ATORVASTATIN 20 MG TAB PO SCH (23:32)
[2024-11-03] MEDS: METOPROLOL TARTRATE 100MG TAB PO SCH (23:32)
[2024-11-04] VITALS (17 sets, daily range): BP systolic 118–158; BP diastolic 50–82; TEMP 97.7–98.4; O2SAT 84–94
[2024-11-04] MEDS: LEVALBUTEROL 1.25 MG 0.5ML CONCENTRATE NEB INH SCH (01:11)
[2024-11-04 05:11] LABS: HEMOGLOBIN 12.2 g/dl (12.0-15.5); MEAN CORPUSCULAR HEMOGLOBIN 29.8 pg (27.0-33.0); MEAN CORPUSCULAR HGB CONC 32.1 g/dl (32.0-36.5); MEAN CORPUSCULAR VOLUME 92.9 fl (80.0-96.0); PLATELET COUNT, AUTOMATED 252 10^3/uL (150-450); RED BLOOD COUNT 4.09 10^6/uL (4.00-5.40); WHITE BLOOD COUNT 5.6 10^3/uL (4.0-10.0)
[2024-11-04] MEDS: LEVOTHYROXINE 100MCG TABLET (0.1MG) PO SCH (05:35)
[2024-11-04 05:47] LABS: CALCIUM LEVEL 8.8 MG/DL (8.3-10.6); CREATININE FOR GFR 0.84 MG/DL (0.55-1.30); GLOMERULAR FILTRATION RATE 74.3 (>39); MAGNESIUM LEVEL 1.7 MG/DL (1.8-2.4); POTASSIUM SERUM 3.5 MMOL/L (3.5-5.1)
[2024-11-04 05:52] LABS: PROCALCITONIN 0.13 ng/ml
[2024-11-04] MEDS ORDERED: GLYCOPYRROLATE INJ 0.2 MG/ML 2 ML VIAL NEB SCH (08:00)
[2024-11-04] MEDS: IPRATROPIUM 0.5MG/ALBUTEROL 2.5MG INH SOL UD 3ML NEB SCH (08:00)
[2024-11-04] MEDS: TIOTROPIUM BROM 2.5MCG/ACTUATION 4GM INH IH SCH (08:04)
[2024-11-04] MEDS: SYMBICORT 160/4.5MCG INHALER 6GM INH SCH (08:04)
[2024-11-04] MEDS: predniSONE 20 MG TAB PO SCH (09:00)
[2024-11-04] MEDS ORDERED: methylPREDNISolone 40MG 1ML VIAL IV SCH (09:00)
[2024-11-04] MEDS ORDERED: IPRATROPIUM 0.5MG/ALBUTEROL 2.5MG INH SOL UD 3ML NEB PRN (09:00)
[2024-11-04] MEDS: IRBESARTAN 150MG TAB PO SCH (09:00)
[2024-11-04] MEDS: POTASSIUM CHLORIDE 10MEQ SR TABLET PO SCH (09:11)
[2024-11-04] MEDS: methylPREDNISolone 40MG 1ML VIAL IV SCH (09:11)
[2024-11-04] MEDS: PANTOPRAZOLE 40MG TAB (PROTONIX) PO SCH (09:18)
[2024-11-04] MEDS: TORSEMIDE 20 MG TAB PO SCH (09:19)
[2024-11-04] MEDS: MAG SULF 1GM/100ML (MAG RUN) 1 GM in IV 1 EA IV ONE (09:22)
[2024-11-04] MEDS: DIGOXIN 0.125 MG TAB PO SCH (09:23)
[2024-11-04] MEDS: LORATADINE 10 MG TAB PO SCH (20:19)
[2024-11-05] MEDS: guaiFENesin SYRUP 200MG 10ML UDC PO ONE (00:05)
[2024-11-05 02:00] VITALS: O2SAT 89
[2024-11-05 04:25] VITALS: BP 148/72; TEMP 97.9; O2SAT 88
[2024-11-05 06:08] LABS: BASO % 0.1 % (0.0-1.0); HEMATOCRIT 37.5 % (36.0-47.0); HEMOGLOBIN 12.1 g/dl (12.0-15.5); LYMPH # 1.3 10^3/uL (1.5-5.0); LYMPH % 14.5 % (24.0-44.0); MEAN CORPUSCULAR HEMOGLOBIN 30.1 pg (27.0-33.0); MEAN CORPUSCULAR HGB CONC 32.3 g/dl (32.0-36.5); MEAN CORPUSCULAR VOLUME 93.3 fl (80.0-96.0); MONO # 0.3 10^3/uL (0.0-0.8); MONO % 3.5 % (2.0-8.0); NEUTROPHILS # 7.2 10^3/uL (1.5-8.5); NEUTROPHILS % 81.3 % (36.0-66.0); PLATELET COUNT, AUTOMATED 300 10^3/uL (150-450); RED BLOOD COUNT 4.02 10^6/uL (4.00-5.40); WHITE BLOOD COUNT 8.8 10^3/uL (4.0-10.0)
[2024-11-05 06:35] LABS: CALCIUM LEVEL 8.6 MG/DL (8.3-10.6); CREATININE FOR GFR 1.03 MG/DL (0.55-1.30); GLOMERULAR FILTRATION RATE 58.1 (>39); POTASSIUM SERUM 3.5 MMOL/L (3.5-5.1)
[2024-11-05] MEDS ORDERED: PRED10TA2 PO ×2 (08:36→08:44)
[2024-11-05 09:07] VITALS: BP 150/73
[2024-11-05 12:15] VITALS: BP 134/67; TEMP 97.9; O2SAT 94
== END 2024-11-05 13:55 | disposition home or self-care (01) ==
LOC: M ED 17:27 → M ED INP 17:28 → M MSPAV 11-04 01:06
PROVIDERS: ADMIT Student in an Organized Health Care Education/Training Program; ATTEND Internal Medicine
DX: J44.1 Chronic obstructive pulmonary disease with (acute) exacerbation (principal); J20.4 Acute bronchitis due to parainfluenza virus; I48.19 Other persistent atrial fibrillation; I25.10 Atherosclerotic heart disease of native coronary artery without angina pectoris; Z86.73 Personal history of transient ischemic attack (TIA), and cerebral infarction without residual deficits; E89.0 Postprocedural hypothyroidism; I10 Essential (primary) hypertension; E78.5 Hyperlipidemia, unspecified; J30.2 Other seasonal allergic rhinitis; Z79.01 Long term (current) use of anticoagulants; E83.42 Hypomagnesemia; Z79.899 Other long term (current) drug therapy
CPT/HCPCS: 36415; 71045; 80048; 80076; 80162; 83605; 83735; 83880; 84145; 84436; 84443; 85025; 85027; 87040; 87486; 87581; 87633; 87798; 93005; 93041; 94640; 94760; 96361; 96374; 96375; 96376; 97116; 97161; 97165; 99285; G0378; J2919; J3475